=== PATIENT | male | born 1965 | race American Indian/Alaskan Native ===

== ENCOUNTER 2020-03-07 11:32 | Emergency (ER) | payer OTHER ==
[~2020-03-07] VITALS: Ht 172.7 cm; Wt 101.2 kg
[2020-03-07] MEDS ORDERED: SYNTHROID125 MCG PO (11:39)
== END 2020-03-07 15:42 | disposition home or self-care (01) ==
LOC: ER 11:32 → EDBD 11:44 → ER 11:44
DX: R55 Syncope and collapse (principal); R42 Dizziness and giddiness; F41.1 Generalized anxiety disorder; F43.0 Acute stress reaction